=== PATIENT | male | born 1980 | race Caucasian/White ===

== ENCOUNTER 2024-06-22 11:48 | Outpatient (CLI) | payer OTHER, SELFPAY ==
--- NOTE | 2024-06-22 13:19 | W.ANESCHARGE ---
Anesthesia Charges Start Date/Time Anesthesia Start Date: 06/22/24 Anesthesia Start Time: 13:02 Stop Date/Time Anesthesia Stop Date: 06/22/24 Anesthesia Stop Time: 13:32 Coding CPT Codes CPT Codes: DENILSON LWR INTST NDTN NOS - 74347 ([id number]) P1 - NORMAL HEALTHY PATIENT, QK - NOTCHED BLADE LOADER 2-4 CNCRNT ANES PROC, QX - RADIO ELECTRONICS OFFICER SVC W/ MED DIRECTION
--- NOTE | 2024-06-22 14:28 | W.ANESCHARGE ---
Anesthesia Charges Start Date/Time Anesthesia Start Date: 06/22/24 Anesthesia Start Time: 13:02 Stop Date/Time Anesthesia Stop Date: 06/22/24 Anesthesia Stop Time: 13:32 Coding CPT Codes CPT Codes: ANES LWR INTST NDSC NOS - 11448 ([id number]) P1 - NORMAL HEALTHY PATIENT
== END 2024-06-22 11:49 | disposition home or self-care (01) ==
LOC: OP CLINIC 11:49
PROVIDERS: PCP Family Medicine; Visit Provider Internal Medicine Gastroenterology
DX: Z12.11 Encounter for screening for malignant neoplasm of colon (principal); D12.2 Benign neoplasm of ascending colon
CPT/HCPCS: 00811; 45385; 88305; J2704

== ENCOUNTER 2024-09-24 12:33 | Outpatient (CLI) | payer OTHER, SELFPAY ==
--- NOTE | 2024-09-24 13:00 | MR_ITS ---
[address] [address] Phone:?[phone] Fax:?[phone] Referring Physician Information: Chandra Ruano M.D. [address] [facility] [address] Phone:?[phone] Fax:?[phone] Patient:Brian Barreto D.O.B:?1980 Sex:?Male Phone:?[phone] [facility] MRN:?[id number] Exam Date:?09/24/2024 EXAM: MRI of the RIGHT KNEE, without contrast CLINICAL INFORMATION: Male, 44 years old, with right knee pain. INDICATION: Evaluate knee pain. PRIOR SURGERY: None reported. PLAIN FILMS: Knee radiographs dated 09/19/2024. COMPARISONS: No prior MRIs available. TECHNICAL INFORMATION: Using a 1.5T MR scanner and a localizing surface coil: sagittals: PD, PDFS coronals: PD, T2FS axials: PD, PDFS SEDATION: None CONTRAST: None FINDINGS: Knee joint: Effusion: Small right knee effusion. Popliteal cyst: None. Loose bodies: None. Subcutaneous and extra-articular soft tissues: Unremarkable. Ligaments: ACL: Status post ACL graft reconstruction with a bone-patellar tendon-bone (BPTB) autograft. The ACL graft is intact. No arthrofibrosis or cyclops lesion. No tunnel cyst formation. PCL: Intact PCL, without acute or chronic injury. MCL: Intact MCL superficial and deep layers, without injury. LCL: Intact LCL, without injury. Posterolateral corner: No posterolateral corner soft tissue injury. Popliteus, biceps femoris, iliotibial band, popliteofibular ligament and lateral gastrocnemius are intact. Posteromedial corner: No posteromedial corner soft tissue injury. Semimembranosus, pes anserine tendons and posterior oblique ligament are without injury, tendinopathy or bursitis. Extensor mechanism: Patellar tendon: Postoperative changes reflect the autograft harvest site. No patellar tendinopathy or tear. Quadriceps tendon: Mild quadriceps insertional tendinopathy, without tear. Retinacula: Medial and lateral retinacula are intact. Fat pads: Postoperative scarring is noted along the posterior surface of Hoffa's fat pad. Medial compartment: Medial meniscus: Apical free edge and undersurface tearing of the posterior horn and body measuring 2.8 cm (sagittal PDFS series 6 images 21-25 and coronal STIR series 8 images 20-23). This is notable for peripheral vertical tearing of the posterior horn. A 1.3 x 0.7 x 0.4 cm flap fragment is present posterior horn/root junction (sagittal PDFS series 6 image 19 and coronal STIR series 8 image 22). Meniscal extrusion measures 3 mm. Medial femoral condyle & tibial plateau: Mild signal heterogeneity, surface irregularity, and thinning of the articular cartilage without full-thickness chondral loss or reactive osseous changes. Lateral compartment: Lateral meniscus: Near full-thickness radial tearing of the lateral meniscal posterior root measuring 1.2 cm (sagittal PDFS series 6 images 13-16). No meniscal extrusion or parameniscal cyst. Lateral femoral condyle: Broad-based grade II chondromalacia of the central surface, with minimal marginal osteophytosis. Lateral tibial plateau: Broad-based grade II chondromalacia of the posterior lateral tibial plateau with a superimposed 8 x 4 mm partial-thickness chondral defect and minimal marginal osteophytosis (coronal STIR series 8 image 22 and sagittal PDFS series 6 image 9). Patellofemoral joint: Patella: No chondromalacia or osteochondral abnormality. Trochlea: No chondromalacia or osteochondral abnormality. Proximal tibiofibular joint: Unremarkable, without evidence of ligament sprain injury, joint effusion or adjacent marrow edema. Bones: Approximately 4 x 6 mm of subtle subchondral fracturing of the periphery of the medial femoral condyle, with moderate surrounding bone marrow edema (coronal PD series 7 image 22 and sagittal PDFS series 6 image 26) IMPRESSION: 1. Complex apical free edge and undersurface tearing of the posterior horn and body of the medial meniscus measuring 2.8 cm and notable for peripheral vertical tearing of the posterior horn, 3 mm of meniscal extrusion, and a 1.3 x 0.7 x 0.4 cm flap fragment at the posterior horn/root junction. 2. Focal subchondral fracturing of the periphery of the medial femoral condyle measuring 4 x 6 mm, with moderate surrounding bone marrow edema. 3. Near full-thickness radial tearing of the lateral meniscal posterior root measuring 1.2 cm. 4. Minimal osteoarthritis of the lateral compartment. 5. Status post ACL graft reconstruction. ACL graft is intact, without complication. 6. Small knee joint effusion. No popliteal (Blunt's) cyst. 7. Mild quadriceps tendinopathy, without tear. 8. No significant osteochondral abnormality of the medial or patellofemoral compartment. BC Electronically signed on 09/25/2024 7:52:00 AM by Handy Burnham M.D.
== END 2024-09-24 12:34 | disposition home or self-care (01) ==
LOC: MRI 12:33
PROVIDERS: PCP Family Medicine; Visit Provider Orthopaedic Surgery
DX: M25.561 Pain in right knee (principal); S83.221A Peripheral tear of medial meniscus, current injury, right knee, initial encounter; S83.281A Other tear of lateral meniscus, current injury, right knee, initial encounter; M17.11 Unilateral primary osteoarthritis, right knee; M25.461 Effusion, right knee
CPT/HCPCS: 73721

== ENCOUNTER 2024-11-07 08:10 | Day surgery (SDC) | payer OTHER, SELFPAY ==
[2024-11-07] VITALS (10 sets, daily range): BP systolic 107–123; BP diastolic 66–81; PULSE 41–67; RESP 16; TEMP 36.6–36.7; O2SAT 98–100; BMI 25.9
[2024-11-07] MEDS: LACTATED RINGERS 1000 ML 1,000 ML 100 ML IV ×2 (08:15→12:34)
[2024-11-07] MEDS: SODIUM CHLORIDE 0.9 % (FLUSH) 10 ML SYRINGE IVF (08:53)
--- NOTE | 2024-11-07 09:00 | W.PM.H&PU ---
History & Physical Update History & Physical Update H&P Reviewed and patient assessed: No changes noted
[2024-11-07] MEDS: ROPIVACAINE 0.5% 30 ML 150 MG INJECTION (11:51)
--- NOTE | 2024-11-07 11:52 | P.ORPRC_ITS ---
Procedure Note Date of procedure: 11/07/24 Procedure: PREOPERATIVE DIAGNOSIS: 1. Right knee medial may meniscus tear, complex, posterior horn to midbody 2. Right knee lateral meniscus posterior root tear POSTOPERATIVE DIAGNOSIS: 1. Right knee medial may meniscus tear, complex, posterior horn to midbody 2. Right knee lateral meniscus posterior root tear PROCEDURE: 1. Right knee arthroscopic lateral meniscus posterior root repair 2. Right knee partial medial meniscectomy SURGEON: Lázaro Fisher M.D. SCAFFOLD WORKER: Chi Larson PA-C. Of note, an delinquent tax collector assistant was critical for this case to aid in patient positioning, knee manipulation, instrument exchange, and closure. ANESTHESIA: Spinal EBL: 2ml TOURNIQUET: 30 min at 250 torr IMPLANTS: Arthrex sutureloc arthroscopic meniscus posterior root repair implant COMPLICATIONS: None INDICATIONS: The patient is a pleasant 44-year-old male who has experienced right knee pain. History is notable for undergoing ACL reconstruction with patellar tendon autograft and partial medial meniscectomy in 1996. In more recent time, he has noted pain with twisting and pivoting type activities which has affected his daily life. Given the persistence of pain despite nonoperative management, surgery was indicated for the above procedure. FINDINGS: ACL graft was intact. Vertical tunnel. Therefore, the femoral attachment was approximately at the 11:30 position on the clock face for the our hand. The ACL did have increased excursion but a solid endpoint consistent with a Darling 2A grading and a grade 1 pivot shift. Medial meniscus showed complex tearing of the posterior horn extending to the midbody. The posterior root was intact. There was evidence of truncation from previous partial meniscectomy. Lateral meniscus showed tearing of the posterior root without any tibial connection. There was some soft tissue connections approaching posterior capsule and PCL but also some traumatized tissue. Not silva hemorrhage or fibrosis, but clearly some partially torn tissue. Grade 2 chondromalacia all 3 compartments. No loose bodies evident. PCL was intact. DESCRIPTION OF PROCEDURE: After a thorough discussion of risks, benefits, and alternatives, the patient was brought to the operating room and placed upon the operating table. Induction of anesthesia was undertaken as previously noted. 2g iv Ancef was administered within 1 hr of incision preoperatively. Appropriate time-out was performed identifying proper patient, site, and procedure. The right lower extremity was prepped and draped in the appropriate sterile fashion using ChloraPrep. The limb was exsanguinated and tourniquet inflated. Anterolateral and anteromedial portals were established with an 11 blade, and a diagnostic arthroscopy was performed. This identified the findings as noted above. Following the diagnostic arthroscopy, a partial medial menisectomy was performed with the combination of basket forceps and a motorized shaver. Following this, the meniscus was re-probed and found to be stable. Approximately 20-25% of the overall meniscus required resection. Thereafter, the lateral meniscus was probed and found to be unstable when probing near the posterior root. It folded into the lateral compartment much farther than would be expected. Therefore, a posterior root lateral meniscus repair was completed. The tibial attachment site was debrided with a combination of rasp, shaver, and bur. Given the ACL as vertical attachment site, it allowed improved visualization of the posterior lateral meniscus root. Following the debridement of both the tibial attachment site and the meniscus itself, the meniscal root repair drill guide was placed, drilled, and a cannulated drill allowed passage of a Nitinol wire. This was brought out through a passport and the sutureloc meniscal root repair device was shuttled. After dunking the proximal part through the tibia, the mechanism was engaged and allowed excellent security to this device. The 2 separate tails were passed through the meniscus and the loops engaged with excellent security achieved on both passing sutures through the posterior root. The sutures were shuttled and secured down to the tibial attachment site. The knee was cycled multiple times and retention performed. It was again cycled and final tensioning completed. This was reprobed and found to be stable. At this stage, the shaver was reinserted into the suprapatellar pouch and all remaining meniscal debris was evacuated. Instruments were removed, excess fluid was drained, and closure performed with 3-0 nylon with Steri-Strips. Dressings were applied, the tourniquet deflated, and the patient was awoken from anesthesia and transferred to the PACU in stable condition. PLAN: 1. Toe-touch weightbear x5 weeks operative extremity. Crutch / walker ambulation assistance PRN. 2. Ice, acetominophen and/or ibuprofen, and Oxycodone for pain as needed. 3. Knee range of motion and quad sets/straight leg raise regularly 4. Follow up with PA visit in 1-2 weeks for a wound check and possibly to initiate physical therapy.
--- NOTE | 2024-11-07 12:00 | P.ANES_ITS ---
Anesthesia Charges Start Date/Time Anesthesia Start Date: 11/07/24 Anesthesia Start Time: 10:07 Stop Date/Time Anesthesia Stop Date: 11/07/24 Anesthesia Stop Time: 12:14 Coding CPT Codes CPT Codes: ANESTH KNEE JOINT SURGERY - 14309 ([id number]) P1 - NORMAL HEALTHY PATIENT, QK - PIPE FITTER MARINE 2-4 CNCRNT ANES PROC, QX - BONE TENDER SVTuan W/ MED DIRECTION
--- NOTE | 2024-11-07 12:00 | W.ANESCHARGE ---
Anesthesia Charges Start Date/Time Anesthesia Start Date: 11/07/24 Anesthesia Start Time: 10:07 Stop Date/Time Anesthesia Stop Date: 11/07/24 Anesthesia Stop Time: 12:14 Coding CPT Codes CPT Codes: ANESTH KNEE JOINT SURGERY - 89709 ([id number]) P1 - NORMAL HEALTHY PATIENT, QK - PROPERTY SPECIALIST 2-4 CNCRNT ANES PROC, QX - SWITCH FOREMAN SVTuan W/ MED DIRECTION
--- NOTE | 2024-11-07 12:15 | P.ANES_ITS ---
Anesthesia Charges Start Date/Time Anesthesia Start Date: 11/07/24 Anesthesia Start Time: 10:07 Stop Date/Time Anesthesia Stop Date: 11/07/24 Anesthesia Stop Time: 12:14 Coding CPT Codes CPT Codes: ANESTH KNEE JOINT SURGERY - 31360 ([id number]) P1 - NORMAL HEALTHY PATIENT, QX - CORRESPONDENCE ANALYST JAVON W/ MED DIRECTION, QK - BACTERIOLOGY RESEARCH ASSISTANT 2-4 CNCRNT ANES PROC
--- NOTE | 2024-11-07 12:15 | W.ANESCHARGE ---
Anesthesia Charges Start Date/Time Anesthesia Start Date: 11/07/24 Anesthesia Start Time: 10:07 Stop Date/Time Anesthesia Stop Date: 11/07/24 Anesthesia Stop Time: 12:14 Coding CPT Codes CPT Codes: ANESTH KNEE JOINT SURGERY - 25819 ([id number]) P1 - NORMAL HEALTHY PATIENT, QX - EMERGENCY PHYSICIAN JAVON W/ MED DIRECTION, QK - SWIMMING POOL ATTENDANT 2-4 CNCRNT ANES PROC
== END 2024-11-07 13:35 | disposition home or self-care (01) ==
LOC: OR 08:11
PROVIDERS: PCP Family Medicine; Visit Provider Orthopaedic Surgery Sports Medicine
PROC: (CPT 29882; principal; 2024-11-07 10:00)
DX: S83.231A Complex tear of medial meniscus, current injury, right knee, initial encounter (principal); S83.281A Other tear of lateral meniscus, current injury, right knee, initial encounter
CPT/HCPCS: 29880; 29882; 01400; C1713; J0690; J1100; J2250; J2405; J2704; J2795; J3010; J7120; L1833

== ENCOUNTER 2025-02-04 09:00 | Outpatient (RCR) | payer OTHER, SELFPAY ==
--- NOTE | 2024-11-09 17:01 | PT.OPEX ---
PT [place] Outpatient Eval PT [facility] Outpatient Eval Start: 11/09/24 07:30 Freq: Status: Active Protocol: Document 11/09/24 07:30 SAMUEL (Rec: 11/09/24 17:01 [facility] [id number]) E-signed By Jo Armstrong PT Physical Therapy Outpatient Evaluation Insurance Information Insurance UMR Information/Comments Medical Diagnosis 1. Right knee medial may meniscus tear, complex, posterior horn to midbody 2. Right knee lateral meniscus posterior root tear S/P Right knee arthroscopic lateral meniscus posterior root repair, partial medial meniscectomy 11/07/24 Treating Diagnosis RIGHT KNEE PAIN RIGHT KNEE STIFFNESS RIGHT KNEE WEAKNESS Imaging Report 09/25/23 IMPRESSION: Information 1. Complex apical free edge and undersurface tearing of the posterior horn and body of the medial meniscus measuring 2.8 cm and notable for peripheral vertical tearing of the posterior horn, 3 mm of meniscal extrusion, and a 1.3 x 0.7 x 0.4 cm flap fragment at the posterior horn/root junction. 2. Focal subchondral fracturing of the periphery of the medial femoral condyle measuring 4 x 6 mm, with moderate surrounding bone marrow edema. 3. Near full-thickness radial tearing of the lateral meniscal posterior root measuring 1.2 cm. 4. Minimal osteoarthritis of the lateral compartment. 5. Status post ACL graft reconstruction. ACL graft is intact, without complication. 6. Small knee joint effusion. No popliteal (Blunt's) cyst. 7. Mild quadriceps tendinopathy, without tear. 8. No significant osteochondral abnormality of the medial or patellofemoral compartment. Referring MD MENCHACA Subjective Preferred Name AMOS Subjective PATIENT REPORTS SEVERAL MONTH H/O OF CLICKING AND POPPING ON HIS RIGHT KNEE; ESPECIALLY WHEN PERFORMING HEAVY LIFTING AND RUNNING. 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 WE WILL DISCUSS DURING HIS ASSESSMENT. HE HAS 2 STEPS TO ENTER HIS HOME AND IS USING BIAXILLARY CRUTCHES W/O ISSUE PER PATIENT. HE REPORTS USING ICE BUT HAS NOT TAKEN HIS SURGICAL BANDAGE OFF NOR HIS HINGE BRACE HE WAS UNCOMFORTABLE WITH MANAGING THE BRACE IN REGARD TO PLACEMENT, MECHANISM TO LOCK AND UNLOCK. INSTRUCTIONS PROVIDED DURING EVALUATION. 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 MENCHACA REFERRED TO [facility] PHYSICAL THERAPY TO EVAL AND TREAT S/P ARTHROSCOPIC PARTIAL MEDIAL MENISCECTOMY AND LATERAL MENISCUS POSTERIOR ROOT REPAIR (11/07/24). HE HAS A H/O AN ACL RECON IN 1996 AND CERVICAL RADICULOPATHY. HE REPORTS SEVERAL MONTH H/O POPPING AND CLICKING FOLLOWING HEAVY LIFTING AND RUNNING WITH INTERMITTENT PAIN. TODAY, HE IS BANDAGE AND BRACED WITH HIS POST OP RECOVERY BANDAGE AND HAS BEEN PARTIAL WITH FOREFOOT USING BIAXILLARY CRUTCHES. PATIENT PROVIDED EDUCATION REGARDING PATHOPHYSIOLOGY, ANATOMY ALONG WITH POSTOP GOALS AND RESTRICTIONS USING PICTURES AND EDUCATION HANDOUTS. WE DISCUSSED SYMPTOM MGMT VIA ICE, ELEVATION, COMPRESSION, AND PO OTC/RX MEDICATIONS. FOLLOWING A COMPREHENSIVE EXAMINATION, THIS PATIENT PRESENTS WITH DISUSE ATROPHY NOTING AN INTACT NERVE SUPPLY TO THE QUAD MUSCLE. PHYSICAL THERAPY ALONE IS NOT SUFFICIENT TO TREAT THE DISUSE ATROPHY THEREFORE, ADDING A CONTINUUM NMES UNIT TO THE PATIENT'S THERAPY PROTOCOL IS NECESSARY.? DISCUSSED GOALS FOR THIS PHASE OF HIS RECOVERY AND SPECIFIC INSTRUCTIONS, AGAIN, REGARDING THE CURRENT STATUS OF HIS HEALING TISSUES AND TOE TOUCH WEIGHT BEARING. PRACTICED DONNING/DOFFING BRACE BRINGING ATTENTION TO THE 90 DEGREES LOCK OUT AND ADJUSTING THROUGHOUT THE DAY. PLEASE REFER TO APPROPRIATE SECTION WITHIN THIS EVALUATION FOR COMPLETE LIST OF GOALS AND PLAN OF CARE. DISCHARGE PLAN AND CRITERIA IS FOR PATIENT TO ACHIEVE THE GOALS LISTED BELOW OR UNTIL MAX POTENTIAL MET. PATIENT VERBALIZED UNDERSTANDING AND AGREEABLE TO POC, FREQ, AND GOALS ESTABLISHED. Primary Functional WEIGHT BEARING RESTRICTIONS Limitations GAIT TRANSFERS STAIRS Plan of Care Rehabilitation Good Potential Physical Therapy 1. DECREASE RIGHT KNEE PAIN TO </3/10 WITH DAILY Goals ACTIVITIES AND WITH THE PROGRESSION OF PHYSICAL THERAPY PROGRAM WHILE MAINTAINING HIS RESTRICTIONS OVER THE NEXT 3-4 WEEKS 2. IMPROVE RIGHT KNEE ROM TO 90 DEGREES KNEE FLEX AND 0 DEGREES EXTENSION OVER THE NEXT 4-6 WEEKS FOR IMPROVED KNEE MECHANICS AND TO PREPARE FOR WEIGHT BEARING MECHANICS ONCE CLEARED. 3. IMPROVE CORE/LE COMPLEX STRENGTH OVER THE NEXT 6-8 WEEKS FOR RETURN TO TRANSFERS WITH EASE, BEGIN GAIT TRAINING WITHOUT A FLARE UP OF PAIN 4. PATIENT WILL BE INDEPENDENT WITH HIS INDIVIDUALIZED AND COMPREHENSIVE HEP WITHIN 12-16 WEEKS FOR PROGRESSION TOWARD ABOVE GOALS, ONGOING IMPROVEMENT OF PAIN/SYMPTOMS, ROM, STRENGTH, AND MOBILITY TO RETURN TO DAILY ACTIVITIES AND FAMILY CENTERED ACTIVITIES W/O FLARE UP OF PAIN/SYMPTOMS Coordination/ Referral Source Communication With Treatment Plan/ Dry Needling,Electrical Stimulation,Gait Training,Heat, Direct Interventions Ice/Cold/Vasopneumatic,Joint Mobilization,Manual Therapy,Neuromuscular Re-ed,Orthotics/Braces,Self-Care/ Home Management,Therapeutic Activities,Therapeutic Exercises,Ultrasound Frequency/Duration 1-2X/WK Patient Will Be Completion of LTG(s),Independent w/HEP Discharged From Therapy Evaluation Billing PT Eval No Charge No Complexity Low Certification Information Provider Signature Communication Only-No Signature Required Required
== END 2025-02-18 15:07 | disposition home or self-care (01) ==
PROVIDERS: PCP Family Medicine; Visit Provider Orthopaedic Surgery Sports Medicine
DX: Z48.89 Encounter for other specified surgical aftercare (principal); S83.231D Complex tear of medial meniscus, current injury, right knee, subsequent encounter; S83.281D Other tear of lateral meniscus, current injury, right knee, subsequent encounter; Z51.89 Encounter for other specified aftercare
CPT/HCPCS: 97110; 97161; 97535